=== PATIENT | male | born 1990 | race African-American/Black ===

== ENCOUNTER 2016-03-14 00:37 | Inpatient (IN) ==
[2016-03-14] MEDS ORDERED: PROPOFOL 1,000 MG/100 ML BOTTLE IV ONE (00:42)
[2016-03-14] MEDS ORDERED: DIPH/TET/ACEL PERT BOOSTER VACCINE 0.5 ML VIAL IM ONE ×2 (00:47→01:25)
[2016-03-14] MEDS ORDERED: LACTATED RINGERS 1,000 ML IV STA (00:47)
[2016-03-14] MEDS ORDERED: PROPOFOL 1,000 MG/100 ML BOTTLE IV SCH (01:00)
[2016-03-14 01:05] LABS: Basophils % 0.3 % (0.0-0.8); Eosinophils # 0.1 10*3/uL (0.0-0.87); Eosinophils % 0.4 % (0.00-10.9); Immature Granulocytes % 2.2 %; Immature Granulocytes Absolute 0.33 #; Lymphocytes # 3.6 10*3/uL (1.4-4.0); Lymphocytes % 23.9 % (21.2-54.2); Mean Corpuscular HGB Conc 33.3 GM/DL (32-36); Mean Corpuscular Hemoglobin 29 PG (27-34); Mean Corpuscular Volume 86.4 FL (87-102); Monocytes # 0.8 10*3/uL (0.11-0.8); Monocytes % 5.1 % (1.7-12.7); Neutrophils # 10.4 10*3/uL (1.4-7.4); Neutrophils % 68.1 % (38.7-73.9); Platelet Count 163 10*3/uL (130-400); Red Blood Count 5.21 10*6/uL (3.8-5.5); Red Cell Distribution Width 13.3 % (9.3-17.3); White Blood Count 15.2 10*3/uL (4.5-13.71)
[2016-03-14 01:22] LABS: INR 1.1; PT Patient Result 11.2 SECS
[2016-03-14 01:23] LABS: Albumin 4.5 G/DL (3.4-5.0); Bilirubin,Total 0.5 MG/DL (0.2-1.0); Calcium 9.1 MG/DL (8.5-10.1); Potassium 4.7 MMOL/L (3.5-5.1); Total Protein 8.4 G/DL (6.4-8.3)
[2016-03-14 02:03] LABS: Apearance,Urine Slightly Hazy (Clear); Bacteria,Urine Occasional /HPF (Few); Bilirubin,Urine Negative (Negative); Blood, Urine Moderate mg/dL (Negative); Glucose,Urine (UA) Negative (Negative); Hyaline Casts,Urine 22 /LPF (0-3); Ketones,Urine Negative (Negative); Mucus,Urine Occasional /LPF (Occasional); Nitrite,Urine Negative (Negative); Protein,Urine 100 MG/DL; RBC,Urine 2 /HPF (0-4); Squamous Epithelial Cell,Urine Occasional /HPF (0-10); Urine Color Yellow (Yellow); Urine Specific Gravity 1.014 (1.001-1.035); Urine Urobilinogen < 2.0 EU/DL (0.2-1.0)
[2016-03-14 02:04] LABS: Pt O2 Delivery Device Ventilator
[2016-03-14 02:04] LABS: Barbiturates Screen,Urine Negative (Negative); Benzodiazepines Screen,Urine Positive (Negative); Cannabinoid Screen,Urine Negative (Negative); Opiate Screen,Urine Negative (Negative); Phencyclidine Screen,Urine Negative (Negative)
[2016-03-14 02:05] LABS: ABG Base Excess -3.9 MMOL/L (-2.5-2.5); ABG HCO3 21.5 MMOL/L (20-26); ABG Oxygen Saturation 99.5 % (95-100); ABG PCO2 40.5 MM HG (35-48); ABG PH 7.343 (7.35-7.45); ABG TCO2 22.8 MMOL/L (23-27)
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
[2016-03-14 02:27] LABS: Lymphocytes 23 % (20-55); Platelet Estimate Normal; Segmented Neutrophils 70 % (50-85); Total Cells Counted 100
[2016-03-14] MEDS ORDERED: SODIUM CHLORIDE 0.9% 250 ML IV PRN (03:13)
[2016-03-14] MEDS: LACTATED RINGERS 1,000 ML IV SCH ×3 (04:00→17:55)
[2016-03-14] MEDS: PROPOFOL 1,000 MG/100 ML BOTTLE IV SCH ×3 (04:05→20:10)
[2016-03-14 04:08] LABS: Allen Test Positive; Pt O2 Delivery Device Ventilator
[2016-03-14 04:09] LABS: ABG Base Excess -3.8 MMOL/L (-2.5-2.5); ABG HCO3 21.2 MMOL/L (20-26); ABG Oxygen Saturation 98.9 % (95-100); ABG PCO2 38.5 MM HG (35-48); ABG PH 7.359 (7.35-7.45); ABG TCO2 22.4 MMOL/L (23-27)
[2016-03-14 04:54] LABS: Basophils % 0.1 % (0.0-0.8); Hematocrit 41.4 VOL% (42.0-52.0); Hemoglobin 13.7 GM/DL (14.0-18.0); Immature Granulocytes % 0.8 %; Immature Granulocytes Absolute 0.13 #; Lymphocytes # 1.2 10*3/uL (1.4-4.0); Lymphocytes % 7.8 % (21.2-54.2); Mean Corpuscular HGB Conc 33.1 GM/DL (32-36); Mean Corpuscular Hemoglobin 29 PG (27-34); Mean Corpuscular Volume 86.1 FL (87-102); Mean Platelet Volume 9.7 FL (9.6-12.0); Monocytes # 1.8 10*3/uL (0.11-0.8); Monocytes % 11.1 % (1.7-12.7); Neutrophils # 12.7 10*3/uL (1.4-7.4); Neutrophils % 80.2 % (38.7-73.9); Platelet Count 274 10*3/uL (130-400); Red Blood Count 4.81 10*6/uL (3.8-5.5); Red Cell Distribution Width 13.4 % (9.3-17.3); White Blood Count 15.8 10*3/uL (4.5-13.71)
[2016-03-14 05:00] LABS: Lactic Acid 3.4 MMOL/L (0.4-2.0)
[2016-03-14 05:13] LABS: Albumin 4.1 G/DL (3.4-5.0); Bilirubin,Total 0.9 MG/DL (0.2-1.0); Calcium 8.4 MG/DL (8.5-10.1); Potassium 4.3 MMOL/L (3.5-5.1); Total Protein 7.2 G/DL (6.4-8.3)
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
[2016-03-14] MEDS ORDERED: HYDROmorphone 2 MG/1 ML VIAL IV PRN (12:51)
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
[2016-03-14] MEDS: KETOROLAC 30 MG/1 ML VIAL IV SCH ×2 (13:34→20:04)
--- NOTE | 2016-03-14 13:50 | Event Note ---
This patient had CT scans over read and a left C4 facet fracture was identified. We do not have neurosurgery coverage or spine service coverage so I recommended to the family that the patient go to [facility] in [place] for neurosurgical consultation. We had held his propofol initially but he wasn't really waking up as expected and he may need to have a CTA of the head and neck to rule out a blunt cerebrovascular injury as well. If they are able to accept him Preferred to hold off on obtaining this study until we can get him to the appropriate location to treat all these injuries but if there is any delay we will obtain a CTA here to evaluate for this.
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
[2016-03-14] MEDS ORDERED: ENOXAPARIN 40 MG/0.4 ML SYRINGE SUBCUT SCH (19:20)
[2016-03-14 20:27] VITALS: BP 142/89
== END 2016-03-14 20:00 | disposition hospice, home (50) | DRG 552 ==
LOC: N.ED 00:37 → EDBD 00:37 → N.EDINP 01:18 → N.CC 02:39
PROVIDERS: ADMIT Surgery; ATTEND Surgery